=== PATIENT | female | born 2000 | race Hispanic/Latino ===

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

== ENCOUNTER 2020-08-21 02:42 | Outpatient (CLI) | payer OTHER ==
[~2020-08-21] VITALS: Ht 154.9 cm; Wt 49.1 kg
[2020-08-21 02:50] VITALS: BP 121/71
[2020-08-21 05:41] VITALS: BP 124/76
[2020-08-21 06:39] VITALS: BP 107/57
== END 2020-08-21 06:57 | disposition home or self-care (01) ==
LOC: M LDO 02:42
DX: O26.892 Other specified pregnancy related conditions, second trimester (principal); Z3A.26 26 weeks gestation of pregnancy
CPT/HCPCS: 76815; 81001; G0378; G0463

== ENCOUNTER 2020-11-03 18:23 | Outpatient (CLI) | payer OTHER ==
[~2020-11-03] VITALS: Ht 154.9 cm; Wt 53.5 kg
[2020-11-03 18:44] VITALS: BP 114/58
--- NOTE | 2020-11-03 19:42 | IPNPDOC ---
Text Note Date of Service The patient was seen on 11/03/20. NOTE 20 yo LMP UNSURE EDC BY US AT 8 .5 WEEKS 11/26/20 AT 36.3 WEEKS NO MOVEMENT X 0600 HOURS . RISK FACTORS DEPRESSION RECURRENT SPON AB EXAMINATION NO CONTRACTIONS CATAGORY 1 STRIP NO DECELERATIONS MODERATE VARIBILITY . US VERTEX ACTIVE LIMB MOTION, CARDIAC ACTIVITY , SPONTANOUS RESPIRATIONS , URINE 1.OOO PH 8.0TRACE [place]UK BP 114/58 PULSE 80 RR 16 TEMP 97.0 PLAN PRECAUTIONS REVIEWED [facility] BLEEDING WHEN TO CALL PROVIDER DISCHARGED UNDELIVERED VS,Fishbone, I+O VS, Fishbone, I+O Vital Signs Date Time Temp Pulse Resp B/P (MAP) Pulse Ox O2 Delivery O2 Flow Rate FiO2 11/03/20 18:44 98.8 80 18 114/58 (76) Oc Brito MD Nov 03, 2020 19:41
== END 2020-11-03 19:25 | disposition home or self-care (01) ==
LOC: M LDO 18:23
PROVIDERS: ATTEND Obstetrics & Gynecology
DX: O36.8130 Decreased fetal movements, third trimester, not applicable or unspecified (principal); Z87.59 Personal history of other complications of pregnancy, childbirth and the puerperium; Z88.8 Allergy status to other drugs, medicaments and biological substances
CPT/HCPCS: 59025; G0378; G0463

== ENCOUNTER 2020-11-14 12:01 | Outpatient (CLI) | payer OTHER ==
[~2020-11-14] VITALS: Ht 154.9 cm; Wt 54.0 kg
[2020-11-14 12:11] VITALS: BP 126/87
--- NOTE | 2020-11-14 13:18 | IPNPDOC ---
Text Note Date of Service The patient was seen on 11/14/20. NOTE 11/14/99 pm 20 yo LMP UNSURE EDC BY US AT 8 WEEK 5 DAYS 11/26/20 AT 38.4 WEEKS ? SROM CLEAR. PAST HISTORY SPONTANEOUS AB X3 AND SUICIDAL IDEATION. EXAMINATION NO DISTRESS CAME WITH DRY PAS NO CONTRACTIONS NO VAGINAL BLEEDING . SF HEIGHT 38 CM VERTEX BOWEL SOUNDS ACTIVE. STERILE EXAMINATION AFTER CONSENT CLEAN VAGINA NO FLUID OR BLOOD CERVIX CLOSED MID POSITION. GBS NEGA TIVE. NITRAZINE NEGATIVE SLIDE MICROSCOPE NO FERNING NO YEAST NO BV. ULTRASOUND AFTER CONSENT VERTEX LIMB MOVEMENT NOTED SPONTANEOUS RESPIRATIONS TRIP 12.42 CM . CERVIX 3.11 CM . NST CATEGORY 1 STRIP NO CONTRACTIONS ACCELERATIONS NO DECELERATIONS MODERATE VARIABILITY. PLAN PRECAUTIONS GIVEN KEEP APPOINTMENT AT [facility] DISCHARGED UNDELIVERED VS,Alexandr, I+O VS, Alexandr, I+O Vital Signs Date Time Temp Pulse Resp B/P (MAP) Pulse Ox O2 Delivery O2 Flow Rate FiO2 11/14/20 12:11 98.1 105 20 126/87 (100) Oc Brito MD Nov 14, 2020 13:17
== END 2020-11-14 13:06 | disposition home or self-care (01) ==
LOC: M LDO 12:01
PROVIDERS: ATTEND Obstetrics & Gynecology
DX: O99.343 Other mental disorders complicating pregnancy, third trimester (principal); O26.893 Other specified pregnancy related conditions, third trimester; Z3A.38 38 weeks gestation of pregnancy
CPT/HCPCS: 59025; G0378; G0463

== ENCOUNTER 2020-11-24 15:23 | Inpatient (IN) | payer OTHER ==
[~2020-11-24] VITALS: Ht 154.9 cm; Wt 56.0 kg
[2020-11-24] MEDS ORDERED: LR 1,000 ML IV SCH (15:26)
[2020-11-24] MEDS ORDERED: LACTATED RINGER'S 1000 ML IV STA (15:26)
--- OUTSIDE RECORDS SUMMARY | 2020-11-24 15:29 | CCD ---
Author Author [facility] Organization [facility] Address Unknown Phone Unavailable Care Team Providers Care Cisco Engineer Name Role Phone TURRIN, JAVI Unavailable Unavailable TURRIN, JAVI Unavailable Unavailable TURRIN, JAVI Unavailable Unavailable TURRIN, JAVI Unavailable Unavailable VENERUSAnthony MD Unavailable Unavailable VENERUS, Anthony SHEPPARD MD Unavailable Unavailable VENERUS, Anthony SHEPPARD MD Unavailable Unavailable VENERUS, Anthony SHEPPARD MD Unavailable Unavailable VENERUS, Anthony SHEPPARD MD Unavailable Unavailable VENERUS, Anthony SHEPPARD MD Unavailable Unavailable VENERUS, Anthony SHEPPARD MD Unavailable Unavailable VENERUS, Anthony SHEPPARD MD Unavailable Unavailable VENERUS, Anthony SHEPPARD MD Unavailable Unavailable Re-disclosure Warning The records that you are about to access may contain information from federally-assisted alcohol or drug abuse programs. If such information is present, then the following federally mandated warning applies: This information has been disclosed to you from records protected by federal confidentiality rules (42 CFR part 2). The federal rules prohibit you from making any further disclosure of this information unless further disclosure is expressly permitted by the written consent of the person to whom it pertains or as otherwise permitted by 42 CFR part 2. A general authorization for the release of medical or other information is NOT sufficient for this purpose. The Federal rules restrict any use of the information to criminally investigate or prosecute any alcohol or drug abuse patient.The records that you are about to access may contain highly sensitive health information, the redisclosure of which is protected by Article 27-F of the [place] State Public Health law. If you continue you may have access to information: Regarding HIV / AIDS; Provided by facilities licensed or operated by the [facility] Office of Mental Health; or Provided by the [facility] Office for People With Developmental Disabilities. If such information is present, then the following [facility] mandated warning applies: This information has been disclosed to you from confidential records which are protected by state law. State law prohibits you from making any further disclosure of this information without the specific written consent of the person to whom it pertains, or as otherwise permitted by law. Any unauthorized further disclosure in violation of state law may result in a fine or group home sentence or both. A general authorization for the release of medical or other information is NOT sufficient authorization for further disc losure. Encounters Encounter Providers Location Date Indications Data Source(s ) Emergency Attender: JAVI ESPINOZA 2019 09:32:00 PM EDT - 07/01/2020 11:14:00 PM EDT [facility] Patient discharged. Emergency Attender: VALARIE TELLES MD 03/21 01:27:00 PM EDT - 03/21/2020 02:28:00 PM EDT [facility] Patient discharged. Outpatient 12/25/2019 12:42:00 PM EST [facility] Outpatient 10/16/2019 08:31:00 PM [facility] Insurance Providers Payer name Policy type / Coverage type Policy ID Covered alliance party ID Covered alliance party's relationship to duron Policy Duron Plan Information [facility] [id number] [facility] [id number] 2 [id number] [facility] - O/P [id number] SELF PAY O UNAVAILABLE S UNAVAILA [facility] O [id number] S [id number] SELF PAY ONLY [id number] SP [id number] Problems, Conditions, and Diagnoses Code Display Name Description Problem Type Effective Dates Data Source(s) Z3A19 19 weeks gestation of 19 weeks gestation of Diagnosis 07/01/2020 09:32:00 PM EDT [facility] [id number] Decreased movements, s econd trimester, not applicable or unspecified Decreased movements, second trimes ter, not applicable or unspecified Diagnosis 07/01/2020 09:32:00 PM EDT [facility] Z3201 Encounter for test, result pos itive Encounter for test, result positive Diagnosis 03/21/2020 01:27:00 PM EDT [facility] Z3200 Encounter for test, result unk nown Encounter for test, result unknown Diagnosis 03/21/2020 01:27:00 PM EDT [facility] Results ID Date Data Source [id number] 07/01/2020 09:32:00 PM EDT [facility] 1 OrderSheet [facility] Emergency Department [address] [place] [address] Phone #: ext- [phone] 07/01/2020 21:26 Patient: JAYA DOMINGO Sex: F : 2000 Age: 20yWEIGHT:46.6 kg (M) HEIGHT:61 inches (S) BMI:19.4ALLERGIES: BenedrylCHIEF COMPLAINT: decreased movementDIAGNOSIS: Patient currently LAB ORDERSOrder Description Priority Entered Acknowledged InitialedDIAGNOSTIC STUDY ORDERSOrder Description Priority Entered Acknowledged InitialedMEDICATION/IV/DRIP/FLUID ORDERSOrder Description Priority Entered Acknowledged InitialedGENERAL ORDERSOrder Description Priority Entered Acknowledged InitialedFetal Heart Tones 21:58 07/01/2020 22:09 Nimesh Hoffman R.N.-Jose;[Electronically signed by Ilene Corey R.N. (06:33 07/02/2020)][Electronically signed by Nimesh Street P.A.-C (21:45 07/02/2020)][Electronically locked by Ilene Corey R.N. (06:33 07/02/2020)] Name Value Range Interpretation Code Description Data Mary rce(s) Supporting Document(s) ID Date Data Source [id number] 07/01/2020 09:32:00 PM EDT [facility] 1 Medication Reconciliation Report [facility] Emergency Department [address] [place] [address] Phone #: ext- [phone] 07/01/2020 21:26 Patient: JAYA DOMINGO Sex: F : 2000 Age: 20yWeight: 46.6 kgHeight/Length: 61 in.BMI: 19.4ALLERGIES: BenedrylThe patient's Home Medications are listed below:NONE.The source(s) of the original Home Medication information:patientThe following Medications were given to the patient in the Emergency Department:None.The following Medications were prescribed to the patient:None. Name Value Range Interpretation Code Description Data Mary rce(s) Supporting Document(s) ID Date Data Source [id number] 07/01/2020 09:32:00 PM EDT [place] [address] Medication Administration Record [facility] Emergency Department [address] [place] [address] Phone #: ext [phone] 07/01/2020 21:26 Patient: JAYA DOMINGO Sex: F : 2000 Age: 20yWeight: 46.6 kgHeight/Length: 61 inBMI: 19.4ALLERGIES: BenedrylDate/Time Medication Administered Medication Ordered Name Value Range Interpretation Code Description Data Mary rce(s) Supporting Document(s) ID Date Data Source [id number] 07/01/2020 09:32:00 PM EDT [place] [address] General Instructions [facility] Emergency Department [address] [place] [address] Phone #: [phone] ext [phone] 07/01/2020 21:26 Patient: JAYA DOMINGO Sex: F : 2000 Age: 20ySecond trimester .INSTRUCTIONSTake Tylenol (Acetaminophen) or Motrin (Ibuprofen) as needed for fever control. Take medicationaccording to label instructions.(Recommend to utilize OTC Tylenol to control inflammation and pain management. Recommend tofollow the instructions on the bottle and not to exceed.).Warnings: Further evaluation is necessary.GENERAL WARNINGS: Return or contact your physician immediately if your condition worsens orchanges unexpectedly, if not improving as expected, or if other problems arise.Follow- up:Return to the emergency department as needed. Follow up with your healthcare provider in about twodays if not better. Call for an appointment.Understanding of the discharge instructions verbalized by patient. ADDITIONAL INFORMATIONPregnancy 2 General Instructions [facility] Emergency Department [address] [place] [address] Phone #: ext- [phone] 07/01/2020 21:26 Patient: JAYA DOMINGO Sex: F : 2000 Age: 20yYour exam today shows that you are . symptomsDuring your body's hormones change. This causes physical and emotional changes. Thisis normal. Knowing what to expect is important for your piece of mind and so you know when to seekhelp for a problem. Here are some of the most common symptoms: Morning sickness or nausea. This can happen any time of the day or night. Tender, swollen breasts Need to urinate frequently Tiredness or fatigue Dizziness Indigestion or heartburn Food cravings or turn-offs Constipation Emotional changes. This can range from anxiety to excitement to depression.General care for a healthy pregnancyHere are things you can do to help make sure your baby is born healthy: 3 General Instructions [facility] Emergency Department [address] [place] [address] Phone #: ext- [phone] 07/01/2020 21:26 Patient: JAYA DOMINGO Sex: F : 2000 Age: 20y Rest when you feel tired. This is especially true in the later months of . Drink more fluids. Your body needs more fluids than you may be used to. Drink 8 to10 glasses of juice, milk, or water every day. Eat well-balanced meals. Eat at regular times to give your body enough protein. You can expect to gain about 30 pounds during the . Don't try to diet or lose weight while you are . Take a vitamin every day. This helps you meet the extra nutritional needs of . Don't take a ny other medicine during your unless your healthcare provider tells you to. This includes prescription medicines and those you buy over the counter. Many medicines can harm the growing baby. If you have nausea or vomiting, don't eat greasy or fried foods. Eat several smaller meals throughout the day rather than 3 large meals. If you smoke, you must stop. The nicotine you breathe in goes right to the baby. Stay away from alcohol, even in moderate amounts. Daily drinking will harm your baby and can cause permanent brain damage. Don't use recreational drugs, especially cocaine, crack, and heroin. These will harm your baby. Also avoid marijuana. If you were using recreational drugs or prescribed medicine when you found out that you were , talk with your healthcare provider about possible effects on your growing baby. If you have medical problems that you need to take medicine for, talk with your healthcare provider.Follow-up careCall your healthcare provider to arrange for care. care is important. You can seeyour family provider, a specialist (music teacher), or a primary care clinic.When to seek medical adviceCall your healthcare provider right away if any of these occur: Vaginal bleeding Pain in your belly (abdomen) or back that is moderate or severe Lots of vomiting, or you can't keep any fluids down for 6 hours 4 General Instructions [facility] Emergency Department [address] [place] [address] Phone #: ext- [phone] 07/01/2020 21:26 - Patient: JAYA DOMINGO Sex: F : 2000 Age: 20y Burning feeling when you urinate Headache, dizziness, or rapid weight gain Fever Vision changes or blurred vision [id number] [employer] [place] [address]. All rights reserved. This information is not intended as asubstitute for professional medical care. Always follow your healthcare professional's instructions. You have been given the following additional information: , New Dx(Electronically signed by Nimesh Street P.A.-C 07/02/2020 21:45) Name Value Range Interpretation Code Description Data Mary rce(s) Supporting Document(s) ID Date Data Source [id number] 07/01/2020 09:32:00 PM EDT [facility] 1 Clinical Report - Nurses [facility] Emergency Department [address] [place] [address] Phone #: ext- [phone] 07/01/2020 21:26 Patient: JAYA DOMINGO Sex: F : 2000 Age: 20yTRIAGEArrived by private vehicle. Historian: patient. Accompanied by family. ( Pt states she hasn't felt babymove within 2 hours - cramping today, denies vaginal bleeding. Advised by OB to come to ER).Acuity: LEVEL 4.Chief Complaint: DECREASED MOVEMENT.Alert. No acute distress.This started today.Treatment STAFF PHYSICAL THERAPY ASSISTANT:None.SEPSIS SCREEN: SIRS Screen negative. Sepsis Screen negative. No suspected or confirmed signs ofinfection present. --21:34 07/01/20 Ana Rosa Fontanez R.N.21:07/01/20. BP: 111/76. MAP: 87. HR: 91. RR: 18. O2 saturation: 100%. Temp: 97.8 F. Pain levelnow: 03/31. --21:34 07/01/20 Ana Rosa Fontanez R.N.Weight: 46.6 kg measured. Height/Length: 61 inches Per Patient. BMI: 19.4. --21:27 07/01/20 Ana Rosa Fontanez R.N.MedicationsNone. --21:07/01/20 Ana Rosa Fontanez R.N.AllergiesBenedryl. --21:07/01/20 Ana Rosa Fontanez R.N.PROBLEMS:Miscarriage (disorder).Ovarian Cyst. --21:07/01/20 Ana Rosa Fontanez R.N.Medication/allergy information source: the patient. --21:34 07/01/20 Ana Rosa Fontanez R.N.ADDITIONAL SURGERIES:Eye surgery. --21:07/01/20 Ana Rosa Fontanez R.N.HistoryPAST MEDICAL HX: Positive. Immunizations: up-to-date. Currently : 19 weeks. Has hadprenatal care by music teacher.SOCIAL HX: Never smoker. No alcohol use or drug use. She was offered HIV testing but declined and 2 Clinical Report - Nurses [facility] Emergency Department [address] [place] [address] Phone #: ext- [phone] 07/01/2020 21:26 Patient: JAYA DOMINGO Sex: F : 2000 Age: 20y hepatitis C testing but declined. She has not traveled outside the [place] Infecti ous disease exposure: No infectious disease exposure. SELF HARM ASSESSMENT: Self harm assessment was performed. The patient answered "no" to the question(s) "Have you recently felt down, depressed, or hopeless?", "Do you have thoughts of harming or killing yourself?", "Do you have a plan for harming or killing yourself?", "Have you recently had thoughts about harming or killing others?", "Do you have any dangerous items in your possession?", "Have you noticed less interest or pleasure in doing things?", "Are you here because you tried to hurt yourself?" and "Have you ever tried to hurt yourself before today?". ABUSE ASSESSMENT: No report of abuse. NUTRITIONAL RISK ASSESSMENT: The nutritional risk assessment revealed no deficiencies. FUNCTIONAL ASSESSMENT: Functional assessment: no impairments noted. LEARNING NEEDS ASSESSMENT: The learning needs assessment revealed no barriers. FALL RISK ASSESSMENT: Fall risk assessment completed. No risk factors identified. SKIN INTEGRITY ASSESSMENT: Skin integrity risk assessment completed. No skin integrity risk identified. --21:34 07/01/20 Ana Rosa Fontanez R.N. Interventions Identification band on patient. --21:34 07/01/20 Ana Rosa Fontanez R.N.PHYSICAL YIYSNGSBCH37:51 07/01/20. Ambulatory to room.GENERAL / NEURO / PSYCH: Alert. Oriented X 4. Appears in no acute distress.HEENT: Mucous membranes are pink.RESPIRATORY: Respirations not labored. Breath sounds within normal limits.CVS: Normal heart rate and rhythm. Capillary refill less than 2 seconds.GI / : Abdomen soft and nontender. Bowel sounds within normal limits.EXTREMITIES: No lower extremity edema.SKIN: Skin is warm and dry. --21:53 07/01/20 Torres Hoffman R.N.NURSING PROGRESS NOTESPatient gowned. Two patient identifiers checked. Call light placed in reach. Bed placed in lowestposition. Brakes of bed on. Patient ready for evaluation. --21:35 07/01/20 Ana Rosa Fontanez R.N.DISPOSITION / DISCHARGE Departure time: 23:14 07/01/2020. Condition at departure: improved. No learning barriers present. Discharge instructions provided and reviewed with the patient. Reviewed referrals for followup. Patient verbalized understanding. Written instructions provided in Nauruan. 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 She was discharged home. She left ambulatory and via private vehicle. --23:14 07/01/20 Belkys Parr R.N. 23:13 07/01/20. BP: 99/68. HR: 78. RR: 16. O2 saturation: 99%. Temp: 97 F. Pain level now 03/31. --23:14 07/01/20 Belkys Parr R.N.Locked/Released at 07/02/2020 06:33 by Ilene Davenport R.N. Name Value Range Interpretation Code Description Data Mary rce(s) Supporting Document(s) ID Date Data Source [id number] 07/01/2020 09:32:00 PM EDT [facility] 1 Clinical Report - Physicians/Mid Levels [facility] Department [address] [place] [address] Phone #: ext- [phone] 07/01/2020 21:26 Patient: JAYA DOMINGO Sex: F : 2000 Age: 20y Time Seen: 21:45 07/01/2020; initial patient contact, initial documentation. Arrived- By private vehicle. Historian- patient.HISTORY OF PRESENT ILLNESS Chief Complaint: DECREASED MOVEMENT. This started today about 2 hours ago and is still present. No contractions, pelvic pain, vaginal bleeding or discharge or complaint of leakage of fluid. Gestational age is 19 weeks. (Pt indicates that baby is typcially active, but indicates she has noted decrased movement over that last 2 hours. Denies any vaginal bleeding; slight cramping. Sts that OB informed her to come to the ER.). Similar symptoms previously. None. Recent medical care: Not recently seen/assessed.REVIEW OF SYSTEMSNo nausea, vomiting, diarrhea, black stools or bloody stools. No headache, double vision, faintingepisodes, fever or eye discomfort. No eye discharge, sore throat, cough, difficulty breathing or chest pain.No skin rash, enlarged lymph nodes, chills or joint pain. All other systems reviewed and are negative.PAST HISTORYSee nurses notes. Problems: OB History. Ovarian cysts. Miscarriage (disorder). Ovarian Cyst. . Additional Surgeries: Eye surgery. Eye surgery. Medications: None. Allergies: Benedryl.SOCIAL HISTORY 2 Clinical Report - Physicians/Mid Levels [facility] [address] [place] [address] Phone #: ext- [phone] 07/01/2020 21:26 Patient: JAYA DOMINGO Sex: F : 2000 Age: 20y Never smoker. No alcohol use or drug use.ADDITIONAL NOTESThe nursing notes have been reviewed.PHYSICAL EXAMVital Signs: 07/01/2020 21:27 BP: 111/76. MAP: 87. HR: 91. RR: 18. O2 saturation: 100%. Temp: 97.8 F.Pain level now: 03/31. Have been reviewed.Appearance: Alert. Oriented X3. No acute distress.ENT: Voice normal.CVS: Normal heart rate and rhythm. No JVD present. Pulses normal. Capillary refill normal. Strongperipheral pulses. Heart sounds normal. Pulses: right radial 2+; left radial 2+; right dorsalis pedis 2+; leftdorsalis pedis 2+; right posterior tibial 2+; left posterior tibial 2+.Respiratory: Chest normal on inspection. No respiratory distress. Unlabored respirations. Lungs clear.Good chest movement. Breath sounds normal and equal.Abdomen: Normal inspection. Soft and nontender. Bowel sounds normal. No distention.Pelvic: FHTs: 150. (OB presents and conduct FHTs).Skin: Skin warm and dry.Neuro: Awake. Alert. Mood/affect normal. No motor deficit. No sensory deficit.Psych: Cognition normal. Thought process and content normal. Insight and judgement normal.PROGRESS AND PROCEDURESCourse of Care: VSS, NAD, AOx3, interacting well and appropriately, no use of accessory muscle, able tospeak full sentences, stable, non-toxic looking. Enter room and pt lying peacefully in bed in NAD. Patient stable. Denies any new issues, concerns, or complaints. Pt compalints of decreaed movement over the last 2 hrs. Slight cramping, but denies any bleeding or vaginal discharge. Consider obtianing US. Discussed with attengin. Attending indicates to only obtain FHTs based on hx. Will comply. OBGYN comes and obtains and indicates presetn about 150. Attending indicates to discharge and f/u with OBGYN. Discussed with attending and indicates safe for discharge. Enter room and patient lying peacefully in bed in NAD. Patient stable. Denies any new issues, concerns, or complaints. Discussed results with pt. Discussed tx plan with pt. Discussed and counseled on stable condition. Discussed importance of a f/u with PCP. Discussed return to ER criteria. Answered their questions. 3 Clinical Report - Physicians/Mid Levels [facility] [address] [place] [address] Phone #: ext- [phone] 07/01/2020 21:26 Patient: JAYA DOMINGO Sex: F : 2000 Age: 20y Indicates and verbalizes that they understand, agree, and will comply with above. Denies any new questions or concerns. Patient has capacity to understand. Discharge decision based on the following: patient's condition is stable; patient's exam is stable; social support is adequate; transportation is available; follow-up is available. Discussed of OTC Motrin and Tylenol to control inflammation and pain management. Informed to follow directions on bottle that are appropriate for age and/or weight. Discussed case with health care provider (Pearl casas)). Disposition: Discharged home in good and improved condition. Condition: good and stable.CLINICAL IMPRESSION Second trimester .INSTRUCTIONS Take Tylenol (Acetaminophen) or Motrin (Ibuprofen) as needed for fever control. Take medication according to label instructions. (Recommend to utilize OTC Tylenol to control inflammation and pain management. Recommend to follow the instructions on the bottle and not to exceed.). Warnings: Further evaluation is necessary. GENERAL WARNINGS: Return or contact your physician immediately if your condition worsens or changes unexpectedly, if not improving as expected, or if other problems arise. Follow- up: Return to the emergency department as needed. Follow up with your healthcare provider in about two days if not better. Call for an appointment. Understanding of the discharge instructions verbalized by patient.(Electronically signed by Nimesh Street P.A.-C 07/02/2020 21:45) Name Value Range Interpretation Code Description Data Mary rce(s) Supporting Document(s) ID Date Data Source [id number] 03/21/2020 01:27:00 PM EDT [facility] 1 OrderSheet [facility] Department [address] [place] [address] Phone #: ext- [phone] 03/21/2020 12:56 Patient: JAYA DOMINGO Sex: F : 2000 Age: 19yWEIGHT:43.9 kg (S) HEIGHT:61 inches (S) BMI:18.3ALLERGIES: No Known Drug AllergyCHIEF COMPLAINT: wants testDIAGNOSIS: Patient currently LAB ORDERSOrder Description Priority Entered Acknowledged InitialedHCG Serum Qual STAT 13:02 03/21/2020 13:04 Nabor Dewitt RN P.A.-C;HCG Serum Quant STAT 13:03/21/2020 13:05 Nabor Dewitt RN P.A.- C;DIAGNOSTIC STUDY ORDERSOrder Description Priority Entered Acknowledged InitialedMEDICATION/IV/DRIP/FLUID ORDERSOrder Description Priority Entered Acknowledged InitialedGENERAL ORDERSOrder Description Priority Entered Acknowledged Initialed[Electronically signed by Nabor Dewitt RN (14:03/21/2020)][Electronically signed by Nimesh Street P.A.-C (19:52 03/21/2020)][Electronically locked by Nabor Dewitt RN (03/21/2020)] Name Value Range Interpretation Code Description Data Mary rce(s) Supporting Document(s) ID Date Data Source [id number] 03/21/2020 01:27:00 PM EDT [facility] 1 Medication Reconciliation Report [facility] Department [address] [place] [address] Phone #: ext- [phone] 03/21/2020 12:56 Patient: JAYA DOMINGO Sex: F : 2000 Age: 19yWeight: 43.9 kgHeight/Length: 61 in.BMI: 18.3ALLERGIES: No Known Drug AllergyThe patient's Home Medications are listed below:NONE.The source(s) of the original Home Medication information:Not obtained.The following Medications were given to the patient in the Emergency Department:None.The foll owing Medications were prescribed to the patient:None. Name Value Range Interpretation Code Description Data Mary rce(s) Supporting Document(s) ID Date Data Source [id number] 03/21/2020 01:27:00 PM EDT [facility] 1 Medication Administration Record [facility] Department [address] [place] [address] Phone #: ext- [phone] 03/21/2020 12:56 Patient: JAYA DOMINGO Sex: F : 2000 Age: 19yWeight: 43.9 kgHeight/Length: 61 inBMI: 18.3ALLERGIES: No Known Drug AllergyDate/Time Medication Administered Medication Ordered Name Value Range Interpretation Code Description Data Mary rce(s) Supporting Document(s) ID Date Data Source [id number] 03/21/2020 01:27:00 PM EDT [facility] 1 General Instructions [facility] Department [address] [place] [address] Phone #: ext- [phone] 03/21/2020 12:56 Patient: JAYA DOMINGO Sex: F : 2000 Age: 19yFirst trimester ; positive test in emergency department.INSTRUCTIONS(HCG QUANT 2445.0).Warnings: Further evaluation is necessary.GENERAL WARNINGS: Return or contact your physician immediately if your condition worsens orchanges unexpectedly, if not improving as expected, or if other problems arise.Follow-up:Return to the emergency department as needed. Follow up with your healthcare provider in about twodays if not better. Call for an appointment. Follow up with an music teacher tomorrow. Call for the nextavailable appointment.Understanding of the discharge instructions verbalized by patient. ADDITIONAL INFORMATIONPregnancy 2 General Instructions [facility] Emergency Department [address] [place] [address] Phone #: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
[2020-11-24] MEDS ORDERED: OXYTOCIN DRIP 30 UNITS in IV 1 EA IV SCH (15:30)
[2020-11-24 15:58] VITALS: BP 123/83
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
[2020-11-24] MEDS ORDERED: TUMS500C PO (16:13)
[2020-11-24 16:34] LABS: HEMATOCRIT 35.1 % (36.0-47.0); HEMOGLOBIN 11.6 g/dl (12.0-15.5); MEAN CORPUSCULAR HEMOGLOBIN 29.6 pg (27.0-33.0); MEAN CORPUSCULAR VOLUME 89.5 fl (80.0-96.0); PLATELET COUNT, AUTOMATED 282 10^3/uL (150-450); RED BLOOD COUNT 3.92 10^6/uL (4.00-5.40)
[2020-11-24 17:15] VITALS: BP 120/74
[2020-11-24 17:46] VITALS: BP 122/77
[2020-11-24 18:16] VITALS: BP 120/72
[2020-11-24 18:45] VITALS: BP 95/57
--- NOTE | 2020-11-25 01:32 | IPNPDOC ---
Obstetrical Progress Note Date of Service Nov 25, 2020 Objective Vital Signs Date Time Temp Pulse Resp B/P (MAP) Pulse Ox O2 Delivery O2 Flow Rate FiO2 11/25/20 00:58 18 11/24/20 18:45 75 95/57 (70) 11/24/20 18:16 98.6 Assessment Heart Rate Tracing: Category I Tocometer Contractions: Yes Frequency: regular, every 1-5 min. Sterile Vaginal Examination Dilation: 4 cm Effacement (%): 80% Station: -2 Cervical Consistency: Soft Cervical Position: Middle Postion/Presentation: Cephalic presentation Assessment and Plan Status: Reassuring Group B Streptococcus: Negative Anticipate: Vaginal Delivery Additional Comments SVE by RN reported to be 4-5/80/-2. FHRT cat I. Pitocin at 10mU/min (decreased from 14mU/min due to tachysystole). Patient desires IV pain meds at this time, given stadol/phenergan. Patient desires to proceed, safe to continue. LUKE TREVINO DO Nov 25, 2020 01:32
--- NOTE | 2020-11-25 03:43 | DNPDOC ---
[facility] Delivery Note Delivery Note DATE OF DELIVERY: 11/25/2020 PREDELIVERY DIAGNOSIS: 39+5/7 weeks' gestation and labor. POST DELIVERY DIAGNOSIS: Delivered. PROCEDURE: Spontaneous vaginal delivery POLICY SERVICE COORDINATOR: Dr. Luke Trevino ANESTHESIA: IV narcotics stadol/phenergan <4 hours prior to delivery ESTIMATED BLOOD LOSS: 100 mL. FINDINGS: 7 pound 7 ounce 3360g female , Score 9/9, no nuchal cord, no meconium DELIVERY SUMMARY: Debbie had large gush of fluid and rapidly progressed from 4 to 8 and then rapidly to c/c/+3 station. She began pushing and was soon at +4 station. Debbie was prepped for delivery. With excellent maternal effort and control, spontaneous vaginal delivery of a viable term female infant. Presentation was OA with restitution to ROT with left shoulder anterior position. Anterior shoulder and body delivered without difficulty. No nuchal/foot/body cord or meconium appreciated. with spontaneous vigorous cry therefore placed on maternal a bdomen with care transferred to awaiting team. Pitocin IV bolus initiated. After 4 minutes of delayed cord clamping, three vessel cord clamped x2 and cut by FOB. Third stage spontaneous with intact placenta. Inspection revealed no lacerations. EBL 100ml. Mother and infant stable and bonding upon my leaving the room. LUKE TREVINO DO Nov 25, 2020 03:43
[2020-11-25 06:10] VITALS: BP 109/61
[2020-11-25 18:00] VITALS: BP 123/60
[2020-11-26 05:54] VITALS: BP 116/66
--- NOTE | 2020-11-26 06:37 | IPNPDOC ---
Progress Note Date of Service: Nov 26, 2020 Day#: 1 Progress Note SUBJECT: [20ypo PPD1 s/p . She has been ambulating, voiding spontane ously without issue and tolerating regular diet. Breast feeding without issue. Reports lochia is [like a normal period]. Patient is ambulating well. [Reports some cramping with . Denies any pain. Voiding and passing flatus without difficulty]. OBJECTIVE: VITAL SIGNS: Within normal limits, afebrile. Alert and oriented times three. Pulm no increased wob cards non-tachycardic Abdomen: Fundus firm at U-2. Soft, NTTP. [Minimal] lochia pr pt ASSESSMENT: 20ypo PPD1 s/p . Vitals within normal limits, afebrile, hemodynamically stable with no evidence of infection. PLAN: 1. Discharge to home today. 2. Tylenol and Motrin for pain. 3. Encourage breast feeding and ambulation. 4. desires NFP for contraception, educated on risk of close interval 5. Routine PP visit in 6 weeks in clinic and 2wk PP for BH check in 6. Discussed return precautions at length. VS, I&O, 24H, Fishbone Vital Signs/I&O Vital Signs Date Time Temp Pulse Resp B/P (MAP) Pulse Ox O2 Delivery O2 Flow Rate FiO2 11/26/20 05:54 98.3 100 17 116/66 (83) 96 Room Air JAYESH WALSH DO Nov 26, 2020 06:37
[2020-11-26 18:00] VITALS: BP 126/90
[2020-11-27 05:59] VITALS: BP 101/54
--- NOTE | 2020-11-27 09:27 | OBDS ---
[facility] Obstetrical Discharge Sum. Obstetrical Discharge Summary Date: Nov 27, 2020 : 1 Term: 1 Pre-term: 0 Abortions: 0 Livin VDRL: Non-Reactive Rh: Positive Rubella: Immune Labor Induction of labor for PROM Delivery Uncomplicated , intact perineum Infant Sex: Female Anesthesia: Other (unmedicated) Episiotomy intact A/P, Post Course List any complications Admission diagnosis: Admitted for IOL for PROM. Discharge diagnosis: discharge to home stable PP uncomplicated Condition at Discharge: stable Discharge Instructions: Home Activity: Ad destini Diet: regular Medications: at [place] Follow-up: 2wk pp in clinic Other: Pt education provided on and options for f/u with in clinic LORENZA CARDOZA CNM Nov 27, 2020 09:27
--- NOTE | 2020-11-27 09:32 | IPNPDOC ---
Progress Note Date of Service: Nov 27, 2020 Day#: 2 Progress Note SUBJECT: Debbie is a 20-year-old 1 now Para 1 status post uncomplicated spontaneous vaginal delivery on 25Nov2020 of a female with an intact perineum, doing well day # 2. She has been ambulating, voiding spontaneously without issue and tolerating regular diet. Breast feeding without issue. Reports lochia is like a normal period. Patient is ambulating well. Reports some cramping with . Denies any pain. Voiding and stooling without difficulty. OBJECTIVE: VITAL SIGNS: Within normal limits, afebrile. Alert and oriented times three. Breath sounds clear to auscultation. Heart rate: Regular rate and rhythm, no murmurs, rubs or gallops. Abdomen: Fundus firm at U-2. Soft, NTTP. [Minimal] lochia. ASSESSMENT: Day 2 post uncomplicated spontaneous vaginal delivery after presenting with spontaneous rupture of membranes (SROM), delivered on 25Nov2020, doing well on day 2. Vitals within normal limits, afebrile, hemodynamically stable with no evidence of infection. Breast filling with nipples intact. Fundus firm at u-2 PLAN: 1. Discharge to home today. 2. Tylenol and Motrin for pain. 3. Encourage breast feeding and ambulation. 4. desires NFP and condoms for contraception. 5. Routine PP visit in 6 weeks in clinic, PP visit at 2wks, pt states understanding of reasons to return sooner. 6. Discussed return precautions at length. VS, I&O, 24H, Fishbone Vital Signs/I&O Vital Signs Date Time Temp Pulse Resp B/P (MAP) Pulse Ox O2 Delivery O2 Flow Rate FiO2 11/27/20 05:59 97.0 83 16 101/54 (70) 11/26/20 18:00 100 Room Air LORENZA CARDOZA CNM Nov 27, 2020 09:32
== END 2020-11-27 13:35 | disposition home or self-care (01) | DRG 807 ==
LOC: M LDI 15:23 → M OBS 11-25 05:29
PROVIDERS: ADMIT Registered Nurse
PROC: 3E033VJ Introduction of Other Hormone into Peripheral Vein, Percutaneous Approach (ICD-10-PCS; 2020-11-24)
PROC: 10E0XZZ Delivery of Products of Conception, External Approach (ICD-10-PCS; principal; 2020-11-25)
DX: O42.02 Full-term premature rupture of membranes, onset of labor within 24 hours of rupture (principal); Z37.0 Single live birth; Z3A.39 39 weeks gestation of pregnancy